=== PATIENT | female | born 1995 | race Caucasian/White ===

== ENCOUNTER 2024-08-27 09:20 | Emergency (ER) | payer MEDICAID ==
[~2024-08-27] VITALS: Ht 167.6 cm; Wt 78.0 kg
[2024-08-27 09:24] VITALS: O2SAT 99
[2024-08-27 09:26] VITALS: TEMP 98.7; O2SAT 98
[2024-08-27] MEDS ORDERED: IBUP-2030 MT (10:33)
[2024-08-27] MEDS ORDERED: LIDO700A15 TP (10:33)
[2024-08-27 10:58] VITALS: PULSE 95
[2024-08-27] MEDS: DEXAMETHASONE 4MG/ML 1ML VIAL IM ONE (10:58)
[2024-08-27] MEDS: KETOROLAC 30MG/ML VIAL IM ONE (10:58)
[2024-08-27 10:59] VITALS: BP 124/78; RESP 18
[2024-08-27] MEDS: LIDOCAINE 5% PATCH TOP SCH (10:59)
== END 2024-08-27 11:22 | disposition home or self-care (01) ==
LOC: ER 09:20
DX: M54.16 Radiculopathy, lumbar region (principal)
CPT/HCPCS: 96372; 99284; J1100; J1885; Z7610 ×2